=== PATIENT | male | born 1940 | race Caucasian/White ===

== ENCOUNTER → 2017-07-28 | Outpatient (CLI) | payer MEDICARE, MEDICAID ==
[~2017-07-28] MED LIST: ACE325 PO; ALB18R INH; ALB6.7R INH; ALBU8.5H12 IH; AMOX-559 PO; AZIT-1 PO; AZIT-18 PO; CHOL200021 PO; CYCL-343 PO; DAR100 PO; DULO30CA35 PO; FAM20 PO; FEXO180T87 PO; FLU45SYR25 IM ONLY; FLUT16SP19 NS; FLUT1DIS28 IH; GABA-503 PO; GABA-547 PO; GABA-549 PO; GUAI118L69 PO; HYDR-389 PO; HYDR1TAB PO; HYDR2TAB74 PO; IPRA3AMP21 IH; KET10 PO; LEVO-85 PO; LIDO20SO21 MM; LIDO700A29 TD; LOR5 PO; LORA1TAB PO; MIRT-22 PO; MOM PO; NAPR-1043 PO; NEBU1KIT43 MC; NYST100040 PO; OMEP-137 PO; OMEP-153 PO; OMEP40CA48 PO; ONDA4TAB PO; PER PO; PNEU0.5D3 IM; POLY17PO25 PO; PRED20TA6 PO; TAMS0.4C70 PO; TOBOD OD; TRAM-420 PO; TRAM100T22 PO; VAR05PT PO; VARE1TAB3 PO; WAR25 PO; WAR5 PO; [UNRECOGNIZED DRUG - REMARK]
[2017-07-28 16:35] LABS: PLATELET COUNT, AUTOMATED 263 K/uL (150-450)
[2017-07-28 16:50] LABS: LDL CHOLESTEROL 134 mg/dl
--- NOTE | 2017-07-28 17:08 | RADIOLOGY IMAGING REPORT ---
FACILITY: [facility] PATIENT NAME: Gerry Mason : 1940 MR: [id number] V: [id number] EXAM DATE: ORDERING PHYSICIAN: HU HENDERSON TECHNOLOGIST: Location: [facility] - [place] Patient: Gerry Mason : 1940 Visit/Account:[id number] Date of Sevice: 07/28/2017 2 VIEWS CHEST INDICATION: COPD and constipation COMPARISON: No notable priors at this time. FINDINGS: Heart size within normal limits. Linear calcified densities overlie the lateral right and left lung field indicative of calcified pleu ral plaques. Lungs are mildly hyperinflated but clear without evidence of focal infiltrate, effusion, consolidation or pneumothorax. No acute bony finding. Fracture deformity and postoperative changes noted to the left clavicle. IMPRESSION: 1. 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 No evidence of acute cardiopulmonary process. Report Dictated By: Jae Kilgore MD at 07/28/2017 5:02 PM Report E-Signed By: Jae Kilgore MD at 07/28/2017 5:04 PM WSN:[email or web address]
--- NOTE | 2017-07-28 17:23 | RADIOLOGY IMAGING REPORT ---
[place] [facility] [place]: Gerry Mason : 1940 MR: [id number] V: [id number] EXAM DATE: ORDERING PHYSICIAN: HU HENDERSON TECHNOLOGIST: [place] [facility] [place] : 1940 Visit/Account:[id number] Date of Sevice: 07/28/2017 Exam type: KUB SINGLE VIEW ABDOMEN History: COPD, constipation, right hip pain Comparison: July 11, 2015. Findings: There is a nonspecific bowel gas pattern present. There is no evidence of organomegaly. There are p ostsurgical changes lower lumbar spine and right hip. Calcified phlebolith are present in the pelvis . IMPRESSION: 1. Nonspecific bowel gas pattern Report Dictated By: Rosa Maria Clemente MD at 07/28/2017 5:04 PM Report E-Signed By: Rosa Maria Clemente MD at 07/28/2017 5:18 PM WSN:[email or web address]
--- NOTE | 2017-07-28 17:30 | RADIOLOGY IMAGING REPORT ---
FACILITY: [facility] [place] PATIENT NAME: Gerry Mason : 1940 MR: [id number] V: [id number] EXAM DATE: ORDERING PHYSICIAN: HU HENDERSON TECHNOLOGIST: [place] [facility] [place] Gerry Mason : 1940 Visit/Account:[id number] Date of Sevice: 07/28/2017 Exam type: HIP RIGHT History: Right hip pain Comparison: July 11, 2015. Findings: There is a right hip arthroplasty that appears in good anatomic alignment. No evidence of prosthetic loosening. There are postsurgical changes lower lumbar spine. There are old fracture deformities o f the superior and inferior pubic rami on the left. There is a small sclerotic density in the proxim al left femur unchanged when compared the prior study IMPRESSION: 1. Right hip arthroplasty appears in good anatomic alignment with no evidence of prosthetic loosenin g at this time Report Dictated By: Rosa Maria Clemente MD at 07/28/2017 5:24 PM Report E-Signed By: Rosa Maria Clemente MD at 07/28/2017 5:27 PM WSN:[email or web address]
== END ==
LOC: LAB 15:52
PROVIDERS: ATTEND Internal Medicine
DX: Z12.5 Encounter for screening for malignant neoplasm of prostate (principal); R91.8 Other nonspecific abnormal finding of lung field; Z96.641 Presence of right artificial hip joint; K21.9 Gastro-esophageal reflux disease without esophagitis; E78.5 Hyperlipidemia, unspecified; R10.9 Unspecified abdominal pain; K59.00 Constipation, unspecified; J44.9 Chronic obstructive pulmonary disease, unspecified
CPT/HCPCS: 81001; 82150; 83690; 84443; 85025; G0103; 36415; 71046; 74018; 82040; 82247; 82310; 82374; 82435; 82465; 82565; 82947; 83718; 84075; 84132; 84153; 84155; 84295; 84450; 84460; 84478; 84520

== ENCOUNTER → 2017-08-05 | Outpatient (CLI) | payer MEDICARE, MEDICAID ==
[~2017-08-05] MED LIST changes: +IOPAMIDOL 76% 75 ML INFUS BTL 75 ML ONE
--- NOTE | 2017-08-05 12:16 | RADIOLOGY IMAGING REPORT ---
FACILITY: [facility] [place] PATIENT NAME: Gerry Mason : 1940 MR: [id number] V: [id number] EXAM DATE: ORDERING PHYSICIAN: HU HENDERSON TECHNOLOGIST: Location: [facility] [place] Patient: Gerry Mason : 1940 Visit/Account:[id number] Date of Sevice: 08/05/2017 ABDOMEN/PELVIS W/WO CONTRAST HISTORY: Abdomen pain, constipation TECHNIQUE: Axial images acquired through the abdomen/pelvis both with and without IV contrast.. Sharan nal and sagittal reformatting also performed. Dose Lowering Technique One of the following dose optimization techniques was utilized in the performance of this exam: Autom ated exposure control; adjustment of the mA and/or kV according to the patient's size; or use of an i terative reconstruction technique. Specific details can be referenced in the facility's radiology C T exam operational policy. CONTRAST: 75 mL Isovue-370 COMPARISON: December 11, 2012 FINDINGS: Visualized lung bases: There is a wedge-shaped area of consolidation in the posterior medial right l ower lobe could represent scarring, atelectasis or developing infiltrate. Small amount linear scarri ng noted in the medial left lung base Hepatobiliary: Negative. Spleen: Negative. Adrenals: Negative. Pancreas: Negative. Kidneys ureters and bladder: There is a 3.1 cm left renal cyst Genitalia: Prostate gland appears mildly enlarged containing coarse calcifications impinging upon th e floor the bladder GI: The appendix is visualized does not appear inflamed. There is mild diverticulosis in the left-s ided colon although no CT evidence of acute diverticulitis. Vessels/spaces/nodes: There are moderate vascular calcifications present. Bones/soft tissues: There is a right hip arthroplasty. There are postoperative changes from posteri or lumbar interbody fusion at L4-5. There is a persistent grade 1-2 anterolisthesis of L4 with respe ct L5 Additional findings: None pertinent. IMPRESSION: There is a wedge-shaped area of consolidation posterior medial right lower lobe which could represent scarring, atelectasis or developing infiltrate.. Prostate gland is mildly enlarged containing coarse calcifications impinging upon the floor the bladd er Mild diverticulosis left-sided colon although no CT evidence of acute diverticulitis Additional chronic findings as described Report Dictated By: Rosa Maria Clemente MD at 08/05/2017 12:01 PM Report E-Signed By: Rosa Maria Clemente MD at 08/05/2017 12:13 PM WSN:[email or web address]
== END ==
LOC: CT 01:19
PROVIDERS: ATTEND Internal Medicine
DX: R91.8 Other nonspecific abnormal finding of lung field (principal); N28.1 Cyst of kidney, acquired; N40.0 Benign prostatic hyperplasia without lower urinary tract symptoms; K57.30 Diverticulosis of large intestine without perforation or abscess without bleeding; I25.10 Atherosclerotic heart disease of native coronary artery without angina pectoris; Z96.641 Presence of right artificial hip joint
CPT/HCPCS: 74178; Q9967

== ENCOUNTER → 2017-09-10 | Outpatient (CLI) | payer MEDICARE, MEDICAID ==
[~2017-09-10] MED LIST changes: -IOPAMIDOL 76% 75 ML INFUS BTL 75 ML ONE
== END ==
LOC: RESP 02:08
PROVIDERS: ATTEND Internal Medicine
DX: J98.4 Other disorders of lung (principal)
CPT/HCPCS: 94060; 94726; 94729

== ENCOUNTER 2017-10-21 11:43 | Emergency (ER) | payer MEDICARE, MEDICAID ==
[2017-10-21] MEDS ORDERED: NS(*) 0.9% 1000 ML BAG 1,000 ML IV ONE (12:12)
[2017-10-21] MEDS ORDERED: DIPHTH/TETANUS/ACEL. PERTUSSIS IM ONE (12:15)
[2017-10-21] MEDS ORDERED: ACETAMINOPHEN 500 MG TAB PO ONE (12:15)
[2017-10-21] MEDS ORDERED: ALBUTEROL/IPRATROPIUM 3 ML NEB NEB ONE (12:15)
--- NOTE | 2017-10-21 12:19 | ER Report ---
History and Physical Time Seen By MD: 12:18 Hx. of Stated Complaint: FELL 8 FEET OFF OF LADDER LAST THURSDAY. C/O BILAT HIP PAIN, TAILBONE AND BACK PAIN. REPORTS LOC - UNSURE OF HOW LONG. HPI/ROS CHIEF COMPLAINT: Abdominal pain, b/l hip pain, hypoxia (81% RA) s/p fall from ladder last week approximately 8 ft height HISTORY OF PRESENT ILLNESS: Patient is a 77-year-old male here status post fall apparently one week ago from an 8 foot ladder with a positive loss of consciousness. Patient reports worsening bilateral hip pain at the site of prior hip replacements. Patient also has voluntary guarding of all quadrants of the abdomen. Patient was noted to be hypoxic at time of evaluation in the emergency department with the oxygen saturation 81% on room air. Patient also complains of C-spine neck pain, lower back pain, headache and blurred vision intermittently. Patient is afebrile, hemodynamically stable at time of evaluation. Patient also had mild hematuria. REVIEW OF SYSTEMS: Constitutional: No fever, no chills. Eyes: No discharge. ENT: No sore throat. Cardiovascular: No chest pain, no palpitations. Respiratory: No cough, + shortness of breath. Gastrointestinal: + abdominal pain, no vomiting. Genitourinary: + hematuria. Musculoskeletal: + back pain. Skin: No rashes. Neurological: + headache. Allergies: Coded Allergies: Mercurial Analogues (Verified Allergy, Severe, SWELLING, 10/21/17) iodine (Verified Allergy, Severe, SWELLING, 10/21/17) morphine (Verified Allergy, Severe, SWELLING, 10/21/17) Uncoded Allergies: SEASONAL ALLERGIES (Allergy, Mild, SNEEZING, 08/09/12) Home Meds Active Scripts Albuterol Sulfate (VENTOLIN HFA) 18 Gm Inh, 2 PUFF INH Q4-6H Y for SHORTNESS OF BREATH, #3 INH 6 Refills albuterol is not helpful Prov:HU HENDERSON MD 08/31/17 Gabapentin (GABAPENTIN) 300 Mg Capsule, 300 MG PO BID, #180 CAPSULE 3 Refills Prov:HU HENDERSON MD 08/31/17 Mirtazapine (MIRTAZAPINE) 15 Mg Tablet, 1 TAB PO QHS for to improve appetite and sleep., #90 TAB 3 Refills Prov:HU HENDERSON MD 07/28/17 Ipratropium/Albuterol Sulfate (IPRAT-ALBUT 0.5-3(2.5) MG/3 ML) 3 Ml Ampul.neb, 3 ML IH QID Y for DYSPNEA, #120 INH 9 Refills Prov:HU HENDERSON MD 07/28/17 Tamsulosin Hcl (TAMSULOSIN HCL) 0.4 Mg Cap.er.24h, 1 CAP PO HS, #90 CAP 3 Refills Prov:HU HENDERSON MD 07/28/17 Fluticasone Prop 50 Mcg Ns (FLONASE 50 MCG NS) 16 Gm [place].susp, 1 SPRAY NS BID , #1 BOT 12 Refills Prov:HU HENDERSON MD 07/28/16 Nebulizer Accessories (A.I.R.S. NEBULIZER) 1 Each Kit, 1 EACH MC QID Y for DYSPNEA, #1 Prov:HU HENDERSON MD 07/24/15 Polyethylene Glycol 3350 (MIRALAX) 17 Gm Powd.pack, 17 GM PO QDAY, #30 PKT 3 Refills Prov:HU HENDERSON MD 07/11/15 Discontinued Scripts Omeprazole (OMEPRAZOLE) 40 Mg Capsule.dr, 40 MG PO QDAY, #90 CAP 3 Refills Prov:HU HENDERSON MD 07/28/17 Hx Smoking: Yes (1/2PPD) Smoking Status: Current: Every Day Smoker Exposure to Second Hand Smoke?: No Hx Substance Use Disorder: No Hx Alcohol Use: Yes (rare) Constitutional Vital Sign - Last 24 Hours 10/21/17 10/21/17 10/21/17 10/21/17 11:47 11:47 12:20 12:20 Temp 98.4 Pulse 78 73 Resp 20 18 B/P (MAP) 139/81 Pulse Ox 81 92 O2 Delivery Room Air Nasal Cannula O2 Flow Rate 3.0 2.0 10/21/17 12:30 Pulse 78 Resp 18 Physical Exam General Appearance: The patient is alert, has no immediate need for airway protection and no signs of toxicity. Eyes: Pupils equal and round no pallor or injection. ENT, Mouth: Mucous membranes are moist. Respiratory: There are no retractions, lungs are clear to auscultation. Cardiovascular: Regular rate and rhythm. Gastrointestinal: Abdomen is soft + diffusely tender Neurological: No focal neuro deficits Skin: Warm and dry, no rashes. Musculoskeletal: Neck is supple non tender. Extremities: + hips painful with ROM testing DIFFERENTIAL DIAGNOSIS: After history and physical exam differential diagnosis was considered for fracture, contusion, intra abdominal bleed, concussion, pneumonia Medical Decision Making Data Points Result Diagram: 10/21/17 1200 10/21/17 1200 Laboratory Hematology Test 10/21/17 12:00 10/21/17 13:44 Red Blood Count 4.92 M/uL (4.00-5.60) Mean Corpuscular Volume 90.3 fL (80.0-96.0) Mean Corpuscular Hemoglobin 30.6 pg (26.0-33.0) Mean Corpuscular Hemoglobin Concent 33.9 g/dL (32.0-36.0) Red Cell Distribution Width 14.2 % (11.5-14.5) Mean Platelet Volume 7.1 fL (7.2-11.1) Neutrophils (%) (Auto) 54.3 % (39.4-72.5) Lymphocytes (%) (Auto) 31.2 % (17.6-49.6) Monocytes (%) (Auto) 9.9 % (4.1-12.4) Eosinophils (%) (Auto) 3.4 % (0.4-6.7) Basophils (%) (Auto) 1.2 % (0.3-1.4) Nucleated RBC Relative Count (auto) 0.1 /100WBC Neutrophils # (Auto) 2.8 K/uL (2.0-7.4) Lymphocytes # (Auto) 1.6 K/uL (1.3-3.6) Monocytes # (Auto) 0.5 K/uL (0.3-1.0) Eosinophils # (Auto) 0.2 K/uL (0.0-0.5) Basophils # (Auto) 0.1 K/uL (0.0-0.1) Nucleated RBC Absolute Count (auto) 0.00 K/uL Prothrombin Time 13.1 seconds (12.0-14.4) Prothromb Time International Ratio 0.99 Activated Partial Thromboplast Time 34 seconds (23-35) Sodium Level 140 mmol/L (137-145) Potassium Level 3.6 mmol/L (3.5-5.0) Chloride Level 102 mmol/L (98-107) Carbon Dioxide Level 29 mmol/L (22-30) Blood Urea Nitrogen 8 mg/dl (9-21) Creatinine 0.90 mg/dl (0.66-1.25) Glomerular Filtration Rate Calc > 60.0 Random Glucose 94 mg/dl (75-110) Lactate 1.4 mmol/L (0.7-2.1) Calcium Level 9.4 mg/dl (8.4-10.2) Total Bilirubin 0.9 mg/dl (0.2-1.3) Aspartate Amino Transf (AST/SGOT) 21 U/L (0-35) Alanine Aminotransferase (ALT/SGPT) 24 U/L (0-56) Alkaline Phosphatase 77 U/L (0-126) Total Protein 6.3 gm/dl (6.3-8.2) Albumin 3.3 g/dl (3.5-5.0) Lipase 26 U/L (23-300) Urine Color Straw Urine Clarity Clear Urine pH 6.0 pH (4.8-9.5) Urine Specific [place] 1.005 Urine Protein Negative mg/dL (NEGATIVE) Urine Glucose (UA) Negative mg/dL (NEGATIVE) Urine Ketones Negative mg/dL (NEGATIVE) Urine Blood Negative (NEGATIVE) Urine Nitrite Negative (NEGATIVE) Urine Bilirubin Negative (NEGATIVE) Urine Urobilinogen Negative mg/dL (0.2-1.9) Urine Leukocyte Esterase Negative (NEGATIVE) Urine RBC None /HPF (0-2/HPF) Urine WBC None /HPF (0-5/HPF) Urine Squamous Epithelial Cells Few /LPF (</=FEW) Urine Bacteria Negative /HPF (NONE-FEW) Urine Mucus None /HPF (NONE-FEW) Chemistry Test 10/21/17 12:00 10/21/17 13:44 White Blood Count 5.2 k/uL (4.5-11.0) Red Blood Count 4.92 M/uL (4.00-5.60) Hemoglobin 15.1 g/dL (14.0-18.0) Hematocrit 44.4 % (42.0-52.0) Mean Corpuscular Volume 90.3 fL (80.0-96.0) Mean Corpuscular Hemoglobin 30.6 pg (26.0-33.0) Mean Corpuscular Hemoglobin Concent 33.9 g/dL (32.0-36.0) Red Cell Distribution Width 14.2 % (11.5-14.5) Platelet Count 254 K/uL (150-450) Mean Platelet Volume 7.1 fL (7.2-11.1) Neutrophils (%) (Auto) 54.3 % (39.4-72.5) Lymphocytes (%) (Auto) 31.2 % (17.6-49.6) Monocytes (%) (Auto) 9.9 % (4.1-12.4) Eosinophils (%) (Auto) 3.4 % (0.4-6.7) Basophils (%) (Auto) 1.2 % (0.3-1.4) Nucleated RBC Relative Count (auto) 0.1 /100WBC Neutrophils # (Auto) 2.8 K/uL (2.0-7.4) Lymphocytes # (Auto) 1.6 K/uL (1.3-3.6) Monocytes # (Auto) 0.5 K/uL (0.3-1.0) Eosinophils # (Auto) 0.2 K/uL (0.0-0.5) Basophils # (Auto) 0.1 K/uL (0.0-0.1) Nucleated RBC Absolute Count (auto) 0.00 K/uL Prothrombin Time 13.1 seconds (12.0-14.4) Prothromb Time International Ratio 0.99 Activated Partial Thromboplast Time 34 seconds (23-35) Glomerular Filtration Rate Calc > 60.0 Lactate 1.4 mmol/L (0.7-2.1) Calcium Level 9.4 mg/dl (8.4-10.2) Total Bilirubin 0.9 mg/dl (0.2-1.3) Aspartate Amino Transf (AST/SGOT) 21 U/L (0-35) Alanine Aminotransferase (ALT/SGPT) 24 U/L (0-56) Alkaline Phosphatase 77 U/L (0-126) Total Protein 6.3 gm/dl (6.3-8.2) Albumin 3.3 g/dl (3.5-5.0) Lipase 26 U/L (23-300) Urine Color Straw Urine Clarity Clear Urine pH 6.0 pH (4.8-9.5) Urine Specific [place] 1.005 Urine Protein Negative mg/dL (NEGATIVE) Urine Glucose (UA) Negative mg/dL (NEGATIVE) Urine Ketones Negative mg/dL (NEGATIVE) Urine Blood Negative (NEGATIVE) Urine Nitrite Negative (NEGATIVE) Urine Bilirubin Negative (NEGATIVE) Urine Urobilinogen Negative mg/dL (0.2-1.9) Urine Leukocyte Esterase Negative (NEGATIVE) Urine RBC None /HPF (0-2/HPF) Urine WBC None /HPF (0-5/HPF) Urine Squamous Epithelial Cells Few /LPF (</=FEW) Urine Bacteria Negative /HPF (NONE-FEW) Urine Mucus None /HPF (NONE-FEW) Coagulation Test 10/21/17 12:00 Prothrombin Time 13.1 seconds Prothromb Time International Ratio 0.99 Activated Partial Thromboplast Time 34 seconds Urinalysis Test 10/21/17 13:44 Urine Color Straw Urine Clarity Clear Urine pH 6.0 pH (4.8-9.5) Urine Specific [place] 1.005 Urine Protein Negative mg/dL (NEGATIVE) Urine Glucose (UA) Negative mg/dL (NEGATIVE) Urine Ketones Negative mg/dL (NEGATIVE) Urine Blood Negative (NEGATIVE) Urine Nitrite Negative (NEGATIVE) Urine Bilirubin Negative (NEGATIVE) Urine Urobilinogen Negative mg/dL (0.2-1.9) Urine Leukocyte Esterase Negative (NEGATIVE) Urine RBC None /HPF (0-2/HPF) Urine WBC None /HPF (0-5/HPF) Urine Squamous Epithelial Cells Few /LPF (</=FEW) Urine Bacteria Negative /HPF (NONE-FEW) Urine Mucus None /HPF (NONE-FEW) ED Course/Re-evaluation ED Course Patient is a 77-year-old male here status post fall approximately one week ago with complaints of headache, intermittent blurred vision, neck pain, hypoxia with a saturation of 81% on room air, persistent cough, diffuse abdominal pain with voluntary guarding, low back pain, bilateral hip pain, hematuria. Patient also reports having lost consciousness for an unknown period of time after falling 8 feet from the ladder. For these reasons, CT trauma scan was ordered x- rays of the hips bilaterally where the patient describes worsening pain. Scans were negative for acute fracture or dislocation . Also lab work was ordered due to concern for possible anemia or blood loss of unknown etiology and returned normal. Patient was given fluids, analgesia for symptomatically relief. She was advised to take naproxen for pain relief. Of note, the trauma scans were completed without contrast due to patient's self-reported history of "near " when being administered IV contrast. Patient was stable at time of discharge. Patient voiced understanding of plan. Decision to Disposition Date: October 21, 2017 Decision to Disposition Time: 14:48 Depart Departure Latest Vital Signs Vital Signs Date Time Temp Pulse Resp B/P (MAP) Pulse Ox O2 Delivery O2 Flow Rate FiO2 10/21/17 12:30 78 18 10/21/17 12:20 92 Nasal Cannula 2.0 10/21/17 11:47 98.4 139/81 Impression: Primary Impression: Fall Additional Impressions: Contusion Musculoskeletal pain Condition: Improved Disposition: HOME OR SELF-CARE Referrals: HU HENDERSON MD (PCP) Patient Instructions: Contusion in Adults (ED), Fall Prevention for Older Adults (ED) Additional Instructions: You may take naproxen 500 mg every 8-12 hours as needed for pain. Please continue to use your home oxygen and titrate to oxygen levels of greater than 90 % until you're able to follow up with your doctor since your oxygen levels were noted to be 81% on room air. Please return promptly if you develop worsening pain, fevers, chills, shortness of breath, nausea, vomiting, difficulty walking. Problem Qualifiers ANGELO SCHILLING DO October 21, 2017 12:19
[2017-10-21 12:25] LABS: PLATELET COUNT, AUTOMATED 254 K/uL (150-450)
[2017-10-21] MEDS ORDERED: IOPAMIDOL 76% 75 ML INFUS BTL 75 ML ONE (12:27)
[2017-10-21 12:31] LABS: INR 0.99
--- NOTE | 2017-10-21 13:22 | RADIOLOGY IMAGING REPORT ---
[facility] PATIENT NAME: Gerry Mason : 1940 MR: [id number] V: [id number] EXAM DATE: ORDERING PHYSICIAN: ANGELO SCHILLING TECHNOLOGIST: [place] [facility] [place] Patient: Gerry Maosn : 1940 Visit/Account:[id number] Date of Sevice: 10/21/2017 Exam type: HIPS BILATERAL History: b/l hip pain s/p fall Comparison: July 28, 2017 Findings: Two views of the right hip demonstrate right hip arthroplasty with no gross evidence of acute fractur e or dislocation. A third nondiagnostic view was submitted. A lateral view was not obtained. Incid entally noted is an old fracture to the superior and inferior pubic rami on the left. IMPRESSION: 1. No evidence of acute fracture station involving the right hip on provided images Report Dictated By: Rosa Maria Clemente MD at 10/21/2017 1:14 PM Report E-Signed By: Rosa Maria Clemente MD at 10/21/2017 1:17 PM WSN:[email or web address]
--- NOTE | 2017-10-21 13:59 | RADIOLOGY IMAGING REPORT ---
FACILITY: [facility] [place] PATIENT NAME: Gerry Mason : 1940 MR: [id number] V: [id number] EXAM DATE: ORDERING PHYSICIAN: ANGELO SCHILLING TECHNOLOGIST: Location: [facility] Patient: Gerry Mason : 1940 Visit/Account:[id number] Date of Sevice: 10/21/2017 CHEST/AB/PELV W/OUT CONTRAST HISTORY: fall ADDITIONAL HISTORY: None. TECHNIQUE: Contiguous axial images acquired through the chest abdomen and pelvis without IV contrast. Coronal and sagittal reformatting was also performed. Dose Lowering Technique One of the following dose optimization techniques was utilized in the performance of this exam: Autom ated exposure control; adjustment of the mA and/or kV according to the patient's size; or use of an i terative reconstruction technique. Specific details can be referenced in the facility's radiology C T exam operational policy. COMPARISON: CT abdomen pelvis August 05, 2017 CT chest December 19, 2012 FINDINGS: CHEST: Lungs/Pleura: Small amount linear stranding in the right lower lobe may represent scarring versus at electasis. Chronic atelectasis is identified in the inferior lingula. There are multiple bilateral calcified pleural plaques. If. No evidence of a pneumothorax or pneumomediastinum. Mediastinum/lymph nodes: Negative. Heart/vessels: Mild coronary artery calcifications. Calcifications also noted at the aortic root Bones/soft tissues: There is an old left clavicular fracture with postsurgical changes. Old fractur e deformity/fusion identified at the left shoulder. There are postsurgical changes of the visualized lower cervical spine and moderate degenerative changes of the right shoulder joint there are old weston ateral rib fractures ABDOMEN AND PELVIS: Hepatobiliary: Negative. Spleen: Negative. Pancreas: Negative. Adrenals: Negative. Kidneys ureters and bladder : Left renal cysts. Pelvic contents not ideally evaluated due to numerou s streak artifacts from a right hip arthroplasty Genitalia: Calcifications are noted within the prostate gland. GI: Diverticulosis of the left-sided colon although no CT evidence of acute diverticulitis Vessels/spaces/nodes: Mild to moderate vascular calcifications are present Bones/soft tissues: Streak artifacts from right hip arthroplasty sclerotic density in the subtrochan teric portion of the left hip remains stable. There are postsurgical changes at L5-S1 from posterior lumbar interbody fusion with a grade 1-2 anterolisthesis of L4 with respect L5 appearing similar to the prior study old fractures through the superior inferior pubic rami on the left again noted Additional findings: None pertinent. IMPRESSION: No acute injury identified within the chest abdomen or pelvis on this noncontrast enhanced study Scarring versus atelectasis the right lower lobe Chronic atelectasis in the inferior lingula Multiple calcified pleural plaques bilaterally raising the question of asbestos exposure Postsurgical changes from old left clavicular fracture, and the lower cervical spine, within the lowe r lumbar spine and a right hip arthroplasty Old fracture deformities of the left shoulder, old bilateral rib fractures, old left sided pubic frac tures. Additional chronic findings as described Report Dictated By: Rosa Maria Clemente MD at 10/21/2017 1:39 PM Report E-Signed By: Rosa Maria Clemente MD at 10/21/2017 1:55 PM WSN:[email or web address]
--- NOTE | 2017-10-21 14:11 | RADIOLOGY IMAGING REPORT ---
FACILITY: [facility] PATIENT NAME: Gerry Mason : 1940 MR: [id number] V: [id number] EXAM DATE: ORDERING PHYSICIAN: ANGELO SCHILLING TECHNOLOGIST: Location: [facility] Patient: Gerry Mason : 1940 Visit/Account:[id number] Date of Sevice: 10/21/2017 EXAMINATION: Head CT without intravenous contrast HISTORY: Trauma TECHNIQUE: Contiguous axial images were obtained from the skull base to the vertex without intraven ous contrast. Sagittal and coronal reformatted images are also submitted. Dose Lowering Technique One of the following dose optimization techniques was utilized in the performance of this exam: Autom ated exposure control; adjustment of the mA and/or kV according to the patient's size; or use of an i terative reconstruction technique. Specific details can be referenced in the facility's radiology C T exam operational policy. COMPARISON: MR the brain 07/29/[address] November 20, 2010 FINDINGS: Brain volume: Mild to moderate diffuse central cortical atrophy present. Not out of proportion for patient's stated age Ventricles: Normal. Acute ischemic changes: None. Hemorrhage: None. 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 White matter: Normal. Vessels: Calcification is noted in the carotid siphons Extra-axial: Negative. Calvarium / scalp: Negative. Skull base / visualized face: Negative. Visualized sinuses / orbits: Multiple polypoid lesions again seen in the axillary sinuses with almos t complete opacification of the sphenoid sinus and partial opacification of ethmoid sinuses similar t o the prior MR IMPRESSION: No acute intracranial process is seen. Additional chronic findings as described above Report Dictated By: Rosa Maria Clemente MD at 10/21/2017 1:55 PM Report E-Signed By: Rosa Maria Clemente MD at 10/21/2017 2:07 PM WSN:[email or web address]
--- NOTE | 2017-10-21 14:23 | RADIOLOGY IMAGING REPORT ---
FACILITY: [facility] [place] PATIENT NAME: Gerry Mason : 1940 MR: [id number] V: [id number] EXAM DATE: ORDERING PHYSICIAN: ANGELO SCHILLING TECHNOLOGIST: Location: [facility] Patient: Gerry Mason : 1940 Visit/Account:[id number] Date of Sevice: 10/21/2017 Exam type: C-SPINE W/O CONTRAST History: TRAUMA Comparison: December 11, 2012. TECHNIQUE: Multiple axial images were obtained to the cervical spine without contrast. Coronal and s agittal reformations were performed. Dose Lowering Technique One of the following dose optimization techniques was utilized in the performance of this exam: Autom ated exposure control; adjustment of the mA and/or kV according to the patient's size; or use of an i terative reconstruction technique. Specific details can be referenced in the facility's radiology C T exam operational policy. Findings: There is a levoconvex curvature to the cervical spine. There is straightening of normal cervical abiel dosis. Again noted are postsurgical changes with metallic wires along the posterior spinous processes of C5 , C6, C7 and T1. There is a 4 mm anterolisthesis of C6 with respect to C7 appears similar to the ella or study. There appears to been fusion of the C5-6 vertebral bodies. There is no evidence of acute fractures or subluxations identified. There are multilevel spondylotic changes seen throughout the cervical spine. These are most prominen t at C3-4 the liver there is moderate severe disc space narrowing, marginal osteophytes uncovertebral spurring and degenerative facet joint changes with moderate foraminal narrowing on the right... IMPRESSION: 1. Extensive spondylotic changes and postsurgical changes in the cervical spine as described above al though no evidence of acute fractures or subluxations are identified. Report Dictated By: Rosa Maria Clemente MD at 10/21/2017 2:07 PM Report E-Signed By: Rosa Maria Clemente MD at 10/21/2017 2:18 PM WSN:[id number]
[2017-10-21 14:30] VITALS: BP 122/72
== END 2017-10-21 15:00 | disposition home or self-care (01) ==
LOC: ER 12:03
DX: M79.1 Myalgia (principal); W11.XXXA Fall on and from ladder, initial encounter; R06.02 Shortness of breath; R51 Headache
CPT/HCPCS: 36415; 70450; 71250; 72125; 73522; 74176; 81001; 83605; 83690; 85025; 85610; 85730; 86850; 86900; 86901; 90471; 90715; 94640; 96360; 96361; 99284; A9270; J7030; J7620; L0172; Q9967; 82040; 82247; 82310; 82374; 82435; 82565; 82947; 84075; 84132; 84155; 84295; 84450; 84460; 84520

== ENCOUNTER 2017-10-31 19:36 | Emergency (ER) | payer MEDICARE, MEDICAID ==
[2017-10-31] MEDS ORDERED: PROPARACAINE 0.5% OP 15ML BTL OU ONE (20:05)
[2017-10-31] MEDS ORDERED: FLUORESCEIN SOD 1 MG 1 EA STRP OU ONE (20:05)
--- NOTE | 2017-10-31 20:19 | ER Report ---
History and Physical Time Seen By MD: 20:18 Hx. of Stated Complaint: PATIENT WAS WELDING AND GOT PIECE OF "SOMETHIN" IN HIS EYE, IT HAPPENED AROUND 1700. HPI/ROS CHIEF COMPLAINT: possible metal in eye from welding HISTORY OF PRESENT ILLNESS: This is a 77 year old male. He was working today, welding, and felt like something flew into his left eye. This happened about 1700. Significant irritation and watering and pain now. Mild blurred vision, but otherwise does not feel like having vision changes. Has had metal in his eye in the past and this feels similar. Has had bilateral cataract surgery in the past. Allergies: Coded Allergies: Mercurial Analogues (Verified Allergy, Severe, SWELLING, 10/31/17) iodine (Verified Allergy, Severe, SWELLING, 10/31/17) morphine (Verified Allergy, Severe, SWELLING, 10/31/17) Uncoded Allergies: SEASONAL ALLERGIES (Allergy, Mild, SNEEZING, 08/09/12) Home Meds Active Scripts Albuterol Sulfate (VENTOLIN HFA) 18 Gm Inh, 2 PUFF INH Q4-6H Y for SHORTNESS OF BREATH, #3 INH 6 Refills albuterol is not helpful Prov:HU HENDERSON MD 08/31/17 Gabapentin (GABAPENTIN) 300 Mg Capsule, 300 MG PO BID, #180 CAPSULE 3 Refills Prov:HU HENDERSON MD 08/31/17 Mirtazapine (MIRTAZAPINE) 15 Mg Tablet, 1 TAB PO QHS for to improve appetite and sleep., #90 TAB 3 Refills Prov:HU HENDERSON MD 07/28/17 Ipratropium/Albuterol Sulfate (IPRAT-ALBUT 0.5-3(2.5) MG/3 ML) 3 Ml Ampul.neb, 3 ML IH QID Y for DYSPNEA, #120 INH 9 Refills Prov:HU HENDERSON MD 07/28/17 Tamsulosin Hcl (TAMSULOSIN HCL) 0.4 Mg Cap.er.24h, 1 CAP PO HS, #90 CAP 3 Refills Prov:HU HENDERSON MD 07/28/17 Fluticasone Prop 50 Mcg Ns (FLONASE 50 MCG NS) 16 Gm [place].susp, 1 SPRAY NS BID , #1 BOT 12 Refills Prov:HU HENDERSON MD 07/28/16 Nebulizer Accessories (A.I.R.S. NEBULIZER) 1 Each Kit, 1 EACH QID Y for DYSPNEA, #1 Prov:HU HENDERSON MD 07/24/15 Polyethylene Glycol 3350 (MIRALAX) 17 Gm Powd.pack, 17 GM PO QDAY, #30 PKT 3 Refills Prov:HU HENDERSON MD 07/11/15 Reviewed Nurses Notes: Yes Hx Smoking: Yes (1/2PPD) Smoking Status: Current: Every Day Smoker Exposure to Second Hand Smoke?: No Hx Substance Use Disorder: No Hx Alcohol Use: Yes (rare) Constitutional Vital Sign - Last 24 Hours 10/31/17 10/31/17 10/31/17 10/31/17 20:11 20:21 20:30 20:36 Temp 98.0 Pulse 60 61 65 Resp 16 B/P (MAP) 122/81 130/81 (97) Pulse Ox 86 94 93 O2 Delivery Room Air 10/31/17 20:43 B/P (MAP) 102/71 (81) Physical Exam General Appearance: Alert, no distress. Used Proparacaine 0.5% drops to numb the left eye. Significant improvement in pain with this. Slit lamp exam: Normal anterior chamber, iris and conjunctiva. I see no foreign body or metal on the cornea. Eyes: Pupils equal, round and reactive to light. No pallor. No scleral icterus. Left eye with moderate injection. There is no discharge. Examination , including under the upper lid, reveals no foreign body. Fluorescein exam reveals uptake over the cornea middle and lateral. Skin: Periorbital skin is not inflamed. DIFFERENTIAL DIAGNOSIS: After history and physical exam differential diagnosis was considered for a red eye from a corneal abrasion, no metal in the cornea on exam. Medical Decision Making ED Course/Re-evaluation ED Course Treated with Tobramycin ophthalmic drops. Discussed the findings and treatment with the patient and answered all questions. Decision to Disposition Date: Oct 31, 2017 Decision to Disposition Time: 20:36 Depart Departure Latest Vital Signs Vital Signs Date Time Temp Pulse Resp B/P (MAP) Pulse Ox O2 Delivery O2 Flow Rate FiO2 10/31/17 20:43 102/71 (81) 10/31/17 20:36 65 93 10/31/17 20:11 98.0 16 Room Air Impression: Primary Impression: Corneal abrasion, left Condition: Improved Disposition: HOME OR SELF-CARE Referrals: HU HENDERSON MD (PCP) Patient Instructions: Corneal Abrasion (ED) Additional Instructions: Use the antibiotic eye drops called Tobramycin ophthalmic drops. 1 drop in the left eye 4 times a day for 5 days. You will still have discomfort for a few days while this heals. You can use lubricating eye drops that you can get over the counter to help with discomfort, and can use 1-2 drops every hour as needed. If still having problems, please see an coverage specialist for further evaluation. Problem Qualifiers Primary Impression: Corneal abrasion, left Encounter type: initial encounter Qualified Codes: S05.02XA - Injury of conjunctiva and corneal abrasion without foreign body, left eye, initial encounter SOY MAGALLON MD Oct 31, 2017 20:18
[2017-10-31] MEDS ORDERED: TOBRAMYCIN 0.3% OP SOLN 5 ML OS ONE (20:35)
[2017-10-31 20:43] VITALS: BP 102/71
== END 2017-10-31 20:48 | disposition home or self-care (01) ==
LOC: ER 20:17
DX: S05.02XA Injury of conjunctiva and corneal abrasion without foreign body, left eye, initial encounter (principal)
CPT/HCPCS: 99283; A9270

== ENCOUNTER → 2018-02-16 | Outpatient (CLI) | payer MEDICARE, MEDICAID ==
[~2018-02-16] MED LIST changes: +IPRA3AMP10 IH; -IPRA3AMP21 IH; +MIRT-25 PO; +PANT40TA65 PO
[2018-02-16 17:17] LABS: PLATELET COUNT, AUTOMATED 260 K/uL (150-450)
[2018-02-16 17:35] LABS: LDL CHOLESTEROL 86 mg/dl
--- NOTE | 2018-02-16 17:42 | RADIOLOGY IMAGING REPORT ---
FACILITY: [facility] [place] PATIENT NAME: Gerry Mason : 1940 MR: [id number] V: [id number] EXAM DATE: ORDERING PHYSICIAN: HU HENDERSON TECHNOLOGIST: Location: [facility] Patient: Gerry Mason : 1940 Visit/Account:[id number] Date of Sevice: 02/16/2018 CHEST PA AND LAT COMPARISONS: 2 view chest dated July 28, 2017 ADDITIONAL PERTINENT HISTORY: COPD with chest pain and shortness of breath. FINDINGS: Cardiomediastinal silhouette: Negative. Pulmonary vasculature: Mild atherosclerotic disease of the thoracic aortic arch. Lung garcia: Hyperexpanded lung garcia with background interstitial scarring. Pleural spaces: Continued findings of pleural plaquing overlying the lateral aspects of the left wilberto thorax. Osseous structures: Negative. Surrounding soft tissues: Negative. IMPRESSION: 1. Continued findings of previous asbestos exposure. 2. Continued hyperexpanded lung garcia with background interstitial scarring. 3. No acute cardiopulmonary disease. Report Dictated By: Kaleb Bynum MD at 02/16/2018 5:37 PM Report E-Signed By: Kaleb Bynum MD at 02/16/2018 5:38 PM WSN:[id number]
--- NOTE | 2018-02-17 14:40 | EKG ---
FACILITY: [facility] PATIENT NAME: JESSICA JAVIER : [id number] MR: [id number] V: [id number] EXAM DATE: ORDERING PHYSICIAN: HU HENDERSON TECHNOLOGIST: ROSE MARY Test Reason : WEIGHTLOSS Blood Pressure : / mmHG Vent. Rate : 063 BPM Atrial Rate : 063 BPM P-R Int : 186 ms QRS Dur : 080 ms QT Int : 398 ms P-R-T Axes : 084 -57 066 degrees QTc Int : 407 ms Normal sinus rhythm Left axis deviation Abnormal ECG No previous ECGs available Referred By: Confirmed By:
== END ==
LOC: LAB 16:43
PROVIDERS: ATTEND Internal Medicine
DX: Z77.090 Contact with and (suspected) exposure to asbestos (principal); J44.9 Chronic obstructive pulmonary disease, unspecified; R63.4 Abnormal weight loss; J92.9 Pleural plaque without asbestos; E78.00 Pure hypercholesterolemia, unspecified; N40.1 Benign prostatic hyperplasia with lower urinary tract symptoms
CPT/HCPCS: 36415; 71046; 81001; 82040; 82247; 82310; 82374; 82435; 82465; 82565; 82728; 82947; 83540; 83550; 83718; 84075; 84132; 84153; 84155; 84295; 84443; 84450; 84460; 84478; 84520; 85025

== ENCOUNTER 2018-04-21 00:39 | Day surgery (SDC) | payer MEDICARE, MEDICAID ==
[~2018-04-21] VITALS: Ht 180.3 cm; Wt 66.7 kg
[~2018-04-21 00:39] MED LIST changes: +ASPI-1471 PO; +GOLYTE PO
[2018-04-21] MEDS ORDERED: LIDOCAINE MPF 1% 5 ML VIAL ONE (07:20)
[2018-04-21] MEDS ORDERED: PROPOFOL EMUL(*) 10MG/ML 20 ML 60 ML ONE (07:20)
[2018-04-21] MEDS: NORMOSOL R SOLN(*) 1000 ML BAG 1,000 ML IV PRN ×2 (07:40→10:44)
[2018-04-21 08:06] VITALS: BP 134/67
[2018-04-21 09:51] VITALS: BP 102/53
--- NOTE | 2018-04-21 10:09 | Short(Outpt) Discharge Summary ---
Discharge Summary Reason for Hosp/Final Diag: (1) History of colon polyps Status: Chronic Hospital Course & Plan: EGD with biopsies and colonoscopy completed without problems. (2) Unintentional weight loss Status: Chronic (3) GERD (gastroesophageal reflux disease) Status: Acute Departure Discharge to: Home, Self Care Discharge Instructions Home Meds Active Scripts Peg/Electrolytes (GOLYTELY SOLUTION) 4,000 Ml Soln, 1 GAL PO ONCE, #1 GAL 0 Refills Prov:SUZE VITALE MD 03/17/18 Pantoprazole Sodium (PANTOPRAZOLE SODIUM) 40 Mg Tablet.dr, 40 MG PO QDAY, #30 TAB.SR 6 Refills Prov:HU HENDERSON MD 02/16/18 Mirtazapine (MIRTAZAPINE) 30 Mg Tablet, 30 MG PO QHS, #90 TAB 1 Refill Prov:HU HENDERSON MD 02/16/18 Albuterol Sulfate (VENTOLIN HFA) 18 Gm Inh, 2 PUFF INH Q4-6H PRN for SHORTNESS OF BREATH, #3 INH 6 Refills albuterol is not helpful Prov:HU HENDERSON MD 08/31/17 Gabapentin (GABAPENTIN) 300 Mg Capsule, 300 MG PO BID, #180 CAPSULE 3 Refills Prov:HU HENDERSON MD 08/31/17 Ipratropium/Albuterol Sulfate (IPRAT-ALBUT 0.5-3(2.5) MG/3 ML) 3 Ml Ampul.neb, 3 ML IH QID PRN for DYSPNEA, #120 INH 9 Refills Prov:HU HENDERSON MD 07/28/17 Tamsulosin Hcl (TAMSULOSIN HCL) 0.4 Mg Cap.er.24h, 1 CAP PO HS, #90 CAP 3 Refills Prov:HU HENDERSON MD 07/28/17 Fluticasone Prop 50 Mcg Ns (FLONASE 50 MCG NS) 16 Gm [place].susp, 1 SPRAY NS BID, #1 BOT 12 Refills Prov:HU HENDERSON MD 07/28/16 Nebulizer Accessories (A.I.R.S. NEBULIZER) 1 Each Kit, 1 EACH MC QID PRN for DYSPNEA, #1 Prov:HU HENDERSON MD 07/24/15 Polyethylene Glycol 3350 (MIRALAX) 17 Gm Powd.pack, 17 GM PO QDAY, #30 PKT 3 Refills Prov:HU HENDERSON MD 07/11/15 Reported Medications Aspirin (ASPIR 81) 81 Mg Tablet.dr, 81 MG PO QDAY, TAB 03/17/18 Diet: Regular Activity: As Tolerated Special Instructions: Your upper endoscopy and your colonoscopy were completed without problems. I didn't see any abnormalities in your esophagus, stomach or duodenum although I did routine biopsies of your duodenum and stomach. Your colon prep wasn't very good and so I didn't get a good look at most of your colon in terms of detecting small polyps. I was able to see well enough that I feel confident that there are no cancers in your colon. I recommend you keep working on your diet as you are, let me know if you start losing weight again, and, if you are healthy enough to tolerate the procedure, you could consider a colonoscopy in 5 years due to your history of colon polyps. Problem Qualifiers (1) GERD (gastroesophageal reflux disease): Esophagitis presence: without esophagitis Qualified Codes: K21.9 - Gastro- esophageal reflux disease without esophagitis SUZE VITALE MD Apr 21, 2018 10:09
[2018-04-21 10:22] VITALS: BP 117/71
[2018-04-21 10:30] VITALS: BP 122/72
[2018-04-21 10:33] VITALS: BP 126/68
[2018-04-21 10:38] VITALS: BP 122/64
[2018-04-21] MEDS ORDERED: ONDANSETRON 4 MG/2 ML VIAL ONE (10:38)
[2018-04-21] MEDS ORDERED: LIDOCAINE/SOD BICARB 8.4% SYR ID ONE (11:20)
== END 2018-04-21 10:41 | disposition home or self-care (01) ==
LOC: OR 00:39
PROVIDERS: ATTEND Surgery
DX: Z12.11 Encounter for screening for malignant neoplasm of colon (principal); K21.9 Gastro-esophageal reflux disease without esophagitis; R63.4 Abnormal weight loss; Z86.010 Personal history of colon polyps
CPT/HCPCS: 00812; 36415; 43239; 83516; 87077; 88305; G0121; J2001; J2704; J2405

== ENCOUNTER 2018-04-21 10:50 | Emergency (ER) | payer MEDICARE, MEDICAID ==
--- NOTE | 2018-04-21 10:56 | ER Report ---
History and Physical Time Seen By : 10:53 HPI/ROS CHIEF COMPLAINT: Altered mental status HISTORY OF PRESENT ILLNESS: This is a 78 year old male. He was in the OR today for a colonoscopy, was in post-op and had a code blue called. He had an un eventful colonoscopy, sedation from Propofol. Had been having a few days of right sided abdominal pain that was new. After his colonoscopy, he was feeling nauseated, and then had an episode where he was confused and then lost consciousness. The post-op staff stated that he had no pulse but was still breathing. They started compressions briefly and then he regained a pulse. I responded to the code. Labs and EKG were obtained. He had a normal rhythm on the monitor. He was then brought to the ER. He was able to respond to commands in the post-op area, but was very weak. Similar on evaluation here in the ER. He is still having abdominal pain. Gave Zofran 4mg IV while in post-op and then gave Fentanyl 50mcg IV here in the ER. His girlfriend did state that he was very weak after the prep for the colonoscopy. REVIEW OF SYSTEMS: Constitutional: No fever or chills. Cardiovascular: No chest pain. Respiratory: No shortness of breath. Gastrointestinal: As above. Musculoskeletal: No musculoskeletal pain. Skin: No rashes. Neurological: No headache. Allergies: Coded Allergies: Mercurial Analogues (Verified Allergy, Severe, SWELLING, 10/31/17) iodine (Verified Allergy, Severe, SWELLING, 10/31/17) morphine (Verified Allergy, Severe, SWELLING, 10/31/17) Uncoded Allergies: SEASONAL ALLERGIES (Allergy, Mild, SNEEZING, 08/09/12) Home Meds Active Scripts Pantoprazole Sodium (PANTOPRAZOLE SODIUM) 40 Mg Tablet.dr, 40 MG PO QDAY, #30 TAB.SR 6 Refills Prov:HU HENDERSON MD 02/16/18 Mirtazapine (MIRTAZAPINE) 30 Mg Tablet, 30 MG PO QHS, #90 TAB 1 Refill Prov:HU HENDERSON MD 02/16/18 Albuterol Sulfate (VENTOLIN HFA) 18 Gm Inh, 2 PUFF INH Q4-6H PRN for SHORTNESS OF BREATH, #3 INH 6 Refills albuterol is not helpful Prov:HU HENDERSON MD 08/31/17 Gabapentin (GABAPENTIN) 300 Mg Capsule, 300 MG PO BID, #180 CAPSULE 3 Refills Prov:HU HENDERSON MD 08/31/17 Ipratropium/Albuterol Sulfate (IPRAT-ALBUT 0.5-3(2.5) MG/3 ML) 3 Ml Ampul.neb, 3 ML IH QID PRN for DYSPNEA, #120 INH 9 Refills Prov:HU HENDERSON MD 07/28/17 Tamsulosin Hcl (TAMSULOSIN HCL) 0.4 Mg Cap.er.24h, 1 CAP PO HS, #90 CAP 3 Refills Prov:HU HENDERSON MD 07/28/17 Fluticasone Prop 50 Mcg Ns (FLONASE 50 MCG NS) 16 Gm [place].susp, 1 SPRAY NS BID, #1 BOT 12 Refills Prov:HU HENDERSON MD 07/28/16 Nebulizer Accessories (A.I.R.S. NEBULIZER) 1 Each Kit, 1 EACH MC QID PRN for DYSPNEA, #1 Prov:HU HENEDRSON MD 07/24/15 Polyethylene Glycol 3350 (MIRALAX) 17 Gm Powd.pack, 17 GM PO QDAY, #30 PKT 3 Refills Prov:HU HENDERSON MD 07/11/15 Reported Medications Aspirin (ASPIR 81) 81 Mg Tablet.dr, 81 MG PO QDAY, TAB 03/17/18 Discontinued Scripts Peg/Electrolytes (GOLYTELY SOLUTION) 4,000 Ml Soln, 1 GAL PO ONCE, #1 GAL 0 Refills Prov:SUZE VITALE MD 03/17/18 Reviewed Nurses Notes: Yes Hx Smoking: Yes (1/2PPD) Smoking Status: Current: Every Day Smoker Exposure to Second Hand Smoke?: No Hx Substance Use Disorder: No Hx Alcohol Use: Yes (rare) Constitutional Vital Sign - Last 24 Hours 04/21/18 04/21/18 04/21/18 04/21/18 10:58 11:00 11:00 11:05 Pulse 66 68 Resp 24 13 B/P (MAP) 122/67 119/69 (86) 118/68 (85) Pulse Ox 95 98 O2 Delivery Oxy Mask O2 Flow Rate 10.0 11/28/18 04/21/18 04/21/18 04/21/18 11:30 11:45 11:50 11:55 Pulse 63 67 Resp 14 18 B/P (MAP) 109/62 (78) 118/70 (86) 126/70 (88) Pulse Ox 95 96 04/21/18 04/21/18 04/21/18 04/21/18 12:00 12:05 12:10 12:15 Pulse 66 64 Resp 12 10 B/P (MAP) 119/68 (85) 123/68 (86) 118/65 (82) 113/69 (84) Pulse Ox 96 95 04/21/18 04/21/18 04/21/18 04/21/18 12:20 12:25 12:30 12:35 Pulse 63 Resp 19 B/P (MAP) 117/68 (84) 117/68 (84) 119/67 (84) 117/61 (79) Pulse Ox 95 04/21/18 04/21/18 04/21/18 04/21/18 12:40 12:45 12:50 12:55 Pulse 67 Resp 12 B/P (MAP) 120/68 (85) 115/69 (84) 117/65 (82) 116/67 (83) Pulse Ox 98 04/21/18 19:13 O2 Flow Rate 2.0 Physical Exam General Appearance: The patient is alert, but very weak. He is able to follow commands, but limited. No acute distress. Eyes: Pupil on the left is round. Bad right eye cloudy, but round pupil. Left is Reactive to light. No pallor, injection or icterus. ENT: Mucous membranes are dry. Otherwise normal oral mucosa. Posterior oropharynx is normal. Neck: Supple and non tender. Respiratory: Lungs are clear to auscultation. Cardiovascular: Regular rate and rhythm. No murmurs, gallops or rubs. Normal capillary refill. Blood pressures have been stable. Gastrointestinal: Abdomen is soft with tenderness on the right abdomen. Nondistended. He has guarding. Bowel sounds hyperactive. Neurological: Alert and oriented x3. No focal neurologic deficits Skin: Warm and dry. DIFFERENTIAL DIAGNOSIS: After history and physical exam, differential diagnosis was considered for altered mental status after a code in post-op are of the OR today. Medical Decision Making Data Points Result Diagram: 04/21/18 1040 04/21/18 1040 Laboratory Hematology Test 04/21/18 10:40 04/21/18 13:19 04/21/18 13:37 Red Blood Count 4.87 M/uL (4.00-5.60) Mean Corpuscular Volume 93.2 fL (80.0-96.0) Mean Corpuscular Hemoglobin 31.6 pg (26.0-33.0) Mean Corpuscular Hemoglobin Concent 33.9 g/dL (32.0-36.0) Red Cell Distribution Width 14.1 % (11.5-14.5) Mean Platelet Volume 7.2 fL (7.2-11.1) Neutrophils (%) (Auto) 72.2 % (39.4-72.5) Lymphocytes (%) (Auto) 19.5 % (17.6-49.6) Monocytes (%) (Auto) 6.7 % (4.1-12.4) Eosinophils (%) (Auto) 0.9 % (0.4-6.7) Basophils (%) (Auto) 0.7 % (0.3-1.4) Nucleated RBC Relative Count (auto) 0.1 /100WBC Neutrophils # (Auto) 4.6 K/uL (2.0-7.4) Lymphocytes # (Auto) 1.2 K/uL (1.3-3.6) Monocytes # (Auto) 0.4 K/uL (0.3-1.0) Eosinophils # (Auto) 0.1 K/uL (0.0-0.5) Basophils # (Auto) 0.0 K/uL (0.0-0.1) Nucleated RBC Absolute Count (auto) 0.00 K/uL Sodium Level 138 mmol/L (137-145) Potassium Level 4.3 mmol/L (3.5-5.0) Chloride Level 103 mmol/L (98-107) Carbon Dioxide Level 27 mmol/L (22-30) Blood Urea Nitrogen 16 mg/dl (9-21) Creatinine 1.00 mg/dl (0.66-1.25) Glomerular Filtration Rate Calc > 60.0 Random Glucose 72 mg/dl (75-110) Lactate 1.3 mmol/L (0.7-2.1) Calcium Level 8.9 mg/dl (8.4-10.2) Total Bilirubin 2.0 mg/dl (0.2-1.3) Aspartate Amino Transf (AST/SGOT) 22 U/L (0-35) Alanine Aminotransferase (ALT/SGPT) 27 U/L (0-56) Alkaline Phosphatase 65 U/L (0-126) Total Protein 5.9 g/dl (6.3-8.2) Albumin 3.5 g/dl (3.5-5.0) Urine Color Yellow Urine Clarity Clear Urine pH 5.0 pH (4.8-9.5) Urine Specific [place] 1.012 Urine Protein Negative mg/dL (NEGATIVE) Urine Glucose (UA) Negative mg/dL (NEGATIVE) Urine Ketones 20 mg/dL (NEGATIVE) Urine Blood Negative (NEGATIVE) Urine Nitrite Negative (NEGATIVE) Urine Bilirubin Negative (NEGATIVE) Urine Urobilinogen Negative mg/dL (0.2-1.9) Urine Leukocyte Esterase Negative (NEGATIVE) Urine RBC None /HPF (0-2/HPF) Urine WBC 1 /HPF (0-5/HPF) Urine Squamous Epithelial Cells None /LPF (</=FEW) Urine Bacteria Negative /HPF (NONE-FEW) Urine Mucus None /HPF (NONE-FEW) Troponin I < 0.012 ng/ml Chemistry Test 04/21/18 10:40 04/21/18 13:19 04/21/18 13:37 White Blood Count 6.3 k/uL (4.5-11.0) Red Blood Count 4.87 M/uL (4.00-5.60) Hemoglobin 15.4 g/dL (14.0-18.0) Hematocrit 45.4 % (42.0-52.0) Mean Corpuscular Volume 93.2 fL (80.0-96.0) Mean Corpuscular Hemoglobin 31.6 pg (26.0-33.0) Mean Corpuscular Hemoglobin Concent 33.9 g/dL (32.0-36.0) Red Cell Distribution Width 14.1 % (11.5-14.5) Platelet Count 260 K/uL (150-450) Mean Platelet Volume 7.2 fL (7.2-11.1) Neutrophils (%) (Auto) 72.2 % (39.4-72.5) Lymphocytes (%) (Auto) 19.5 % (17.6-49.6) Monocytes (%) (Auto) 6.7 % (4.1-12.4) Eosinophils (%) (Auto) 0.9 % (0.4-6.7) Basophils (%) (Auto) 0.7 % (0.3-1.4) Nucleated RBC Relative Count (auto) 0.1 /100WBC Neutrophils # (Auto) 4.6 K/uL (2.0-7.4) Lymphocytes # (Auto) 1.2 K/uL (1.3-3.6) Monocytes # (Auto) 0.4 K/uL (0.3-1.0) Eosinophils # (Auto) 0.1 K/uL (0.0-0.5) Basophils # (Auto) 0.0 K/uL (0.0-0.1) Nucleated RBC Absolute Count (auto) 0.00 K/uL Glomerular Filtration Rate Calc > 60.0 Lactate 1.3 mmol/L (0.7-2.1) Calcium Level 8.9 mg/dl (8.4-10.2) Total Bilirubin 2.0 mg/dl (0.2-1.3) Aspartate Amino Transf (AST/SGOT) 22 U/L (0-35) Alanine Aminotransferase (ALT/SGPT) 27 U/L (0-56) Alkaline Phosphatase 65 U/L (0-126) Total Protein 5.9 g/dl (6.3-8.2) Albumin 3.5 g/dl (3.5-5.0) Urine Color Yellow Urine Clarity Clear Urine pH 5.0 pH (4.8-9.5) Urine Specific [place] 1.012 Urine Protein Negative mg/dL (NEGATIVE) Urine Glucose (UA) Negative mg/dL (NEGATIVE) Urine Ketones 20 mg/dL (NEGATIVE) Urine Blood Negative (NEGATIVE) Urine Nitrite Negative (NEGATIVE) Urine Bilirubin Negative (NEGATIVE) Urine Urobilinogen Negative mg/dL (0.2-1.9) Urine Leukocyte Esterase Negative (NEGATIVE) Urine RBC None /HPF (0-2/HPF) Urine WBC 1 /HPF (0-5/HPF) Urine Squamous Epithelial Cells None /LPF (</=FEW) Urine Bacteria Negative /HPF (NONE-FEW) Urine Mucus None /HPF (NONE-FEW) Troponin I < 0.012 ng/ml Urinalysis Test 04/21/18 13:19 Urine Color Yellow Urine Clarity Clear Urine pH 5.0 pH (4.8-9.5) Urine Specific [place] 1.012 Urine Protein Negative mg/dL (NEGATIVE) Urine Glucose (UA) Negative mg/dL (NEGATIVE) Urine Ketones 20 mg/dL (NEGATIVE) Urine Blood Negative (NEGATIVE) Urine Nitrite Negative (NEGATIVE) Urine Bilirubin Negative (NEGATIVE) Urine Urobilinogen Negative mg/dL (0.2-1.9) Urine Leukocyte Esterase Negative (NEGATIVE) Urine RBC None /HPF (0-2/HPF) Urine WBC 1 /HPF (0-5/HPF) Urine Squamous Epithelial Cells None /LPF (</=FEW) Urine Bacteria Negative /HPF (NONE-FEW) Urine Mucus None /HPF (NONE-FEW) EKG/Imaging EKG Interpretation 12 lead EKG: At 10:37 hours Rhythm: Normal sinus rhythm, rate 61 Pep: normal QRS: normal ST segments: No ST elevation or depression. Nonspecific flattening of the T waves in the inferior leads 12 lead EKG: Rhythm: Normal sinus rhythm, rate 65 Pep: Left axis deviation QRS: normal ST segments: As above Unchanged Imaging CT BRAIN WITHOUT CONTRAST CLINICAL INDICATION: Altered consciousness COMPARISON: CT dated October 21, 2017. TECHNIQUE: Contiguous axial CT images of the brain were obtained without IV contrast. Sagittal and coronal reformatted images were also performed. One of the following dose optimization techniques was utilized in the performance of this exam: Automated exposure control; adjustment of the mA a nd/or kV according to the patient's size; or use of an iterative reconstruction technique. Specific details can be referenced in the facility's radiology CT exam operational policy. RESULT: BRAIN: Mild prominence of the ventricles and sulci is consistent with atrophy. There are few scattered areas of low attenuation in the periventricular and subcortical white matter which are nonspecific, but suggestive of chronic microvascular ischemic change. The brainstem and cerebellum appear normal. The basilar cisterns appear normal. There is no acute infarct, hemorrhage or shift of midline. Vascular atherosclerotic calcifications are present. 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 PARANASAL SINUSES & MASTOIDS: Multiple retention cysts within the maxillary si nuses, grossly unchanged. Unchanged retention cyst versus proteinaceous chronic secretions within the sphenoid sinus SKULL BASE & CRANIUM: Visualized osseous structures are intact. SOFT TISSUES: No soft tissue swelling or hematoma is appreciated. IMPRESSION: 1. No acute findings. 2. Chronic findings, as above. Report Dictated By: Dick Fuller MD at 04/21/2018 12:25 PM CHEST/AB/PELV W/OUT CONTRAST HISTORY: colonoscopy today, right abd pain, altered consciousnes TECHNIQUE: CT chest, abdomen and pelvis without intravenous contrast. One of the following dose optimization techniques was utilized in the performance of this exam: Automated exposure control; adjustment of the mA and/or kV according to the patient's size; or use of an iterative reconstruction technique. Specific details can be referenced in the facility's radiology CT exam operational policy. CONTRAST: None. Please note, lack of IV contrast limits evaluation of solid organs. COMPARISON: CT dated October 21, 2017. FINDINGS: CHEST: Heart/vessels: Mild calcifications within the coronary arteries. Mild prominence of the pulmonary arteries which is nonspecific however could be seen with pulmonary hypertension. Mild atherosclerosis within the aortic arch. Otherwise negative. Mediastinum: Negative. Lymph nodes: Negative. Lungs/pleura: Scattered calcified pleural plaques. Mild/moderate diffuse bronchial wall thickening within the lower lobes with scattered airway secretions/mucous plugging. Calcified granuloma within the left lower lobe. Bones/soft tissues: Chronic healed right rib fractures. There are 2 surgical screws within the lateral aspect of the left clavicle. No acute or concerning osseous abnormality. ABDOMEN/PELVIS: Hepatobiliary: Tiny hyperattenuation layering within the gallbladder lumen, likely representing a small gallstone. No evidence for acute cholecystitis. Otherwise negative. Spleen: Negative. Adrenals: Negative. Pancreas: Negative. Kidneys/: Cyst within the superior left kidney measuring up to 2.9 cm. Otherwise negative. GI: Mild sigmoid diverticulosis without evidence for diverticulitis. Questionable mild wall thickening within the proximal ascending colon with mild pericolonic inflammation. No adjacent free air to suggest perforation. Vessels/spaces/nodes: Mild/moderate atherosclerosis. No free air or free fluid. No lymphadenopathy. Incidental note of a circumaortic left renal vein. Bones/soft tissues: Unremarkable postoperative appearance of partially visualized right hip arthroplasty and lumbar fusion hardware. There is 11 mm anterolisthesis of L4 on L5. IMPRESSION: 1. Questionable mild wall thickening and pericolonic inflammation within the ascending colon without evidence for perforation. Findings may be postprocedural in etiology. Otherwise, no potential sequela/comp location of colonoscopy identified throughout the chest, abdomen, or pelvis. 2. Incidental/chronic findings, as above. Report Dictated By: Dick Fuller MD at 04/21/2018 12:16 PM ED Course/Re-evaluation Clinical Indication for ER IV: Hydration, IV Access ED Course Labs negative. Imaging negative. After a period of time, the patient awoke and regained normal level of consciousness. [place] normal and requesting to go home. Decision to Disposition Date: Apr 21, 2018 Decision to Disposition Time: 14:23 Depart Departure Latest Vital Signs Vital Signs Date Time Temp Pulse Resp B/P (MAP) Pulse Ox O2 Delivery O2 Flow Rate FiO2 04/21/18 19:13 2.0 04/21/18 12:55 116/67 (83) 04/21/18 12:45 67 12 98 04/21/18 10:58 Oxy Mask Impression: Primary Impression: Altered mental status Condition: Improved Disposition: HOME OR SELF-CARE Referrals: HU HENDERSON MD (PCP) Patient Instructions: Altered Mental Status (ED) Additional Instructions: We think that your temporary altered mental status was a combination of being a little dehydrated and the effects of the sedation and procedure. Rest and increase fluid intake over the next few days. Return to the ER if you have having further problems. Problem Qualifiers Primary Impression: Altered mental status Altered mental status type: transient alteration of awareness Qualified Codes: R40.4 - Transient alteration of awareness SOY MAGALLON MD Apr 21, 2018 10:56
[2018-04-21] MEDS ORDERED: fentaNYL CITR 100 MCG/2 ML AMP IVP ONE (11:00)
[2018-04-21 11:20] LABS: PLATELET COUNT, AUTOMATED 260 K/uL (150-450)
--- NOTE | 2018-04-21 12:30 | RADIOLOGY IMAGING REPORT ---
FACILITY: [facility] - [place] PATIENT NAME: Gerry Mason : 1940 MR: [id number] V: [id number] EXAM DATE: ORDERING PHYSICIAN: SOY MAGALLON TECHNOLOGIST: Location: [facility] - [place] Patient: Gerry Mason : 1940 Visit/Account:[id number] Date of Sevice: 04/21/2018 CHEST/AB/PELV W/OUT CONTRAST HISTORY: colonoscopy today, right abd pain, altered consciousnes TECHNIQUE: CT chest, abdomen and pelvis without intravenous contrast. One of the following dose optimization techniques was utilized in the performance of this exam: Autom ated exposure control; adjustment of the mA and/or kV according to the patient's size; or use of an i terative reconstruction technique. Specific details can be referenced in the facility's radiology C T exam operational policy. CONTRAST: None. Please note, lack of IV contrast limits evaluation of solid organs. COMPARISON: CT dated October 21, 2017. FINDINGS: CHEST: Heart/vessels: Mild calcifications within the coronary arteries. Mild prominence of the pulmonary a rteries which is nonspecific however could be seen with pulmonary hypertension. Mild atherosclerosis within the aortic arch. Otherwise negative. Mediastinum: Negative. Lymph nodes: Negative. Lungs/pleura: Scattered calcified pleural plaques. Mild/moderate diffuse bronchial wall thickening within the lower lobes with scattered airway secretions/mucous plugging. Calcified granuloma within the left lower lobe. Bones/soft tissues: Chronic healed right rib fractures. There are 2 surgical screws within the late ral aspect of the left clavicle. No acute or concerning osseous abnormality. ABDOMEN/PELVIS: Hepatobiliary: Tiny hyperattenuation layering within the gallbladder lumen, likely representing a sm all gallstone. No evidence for acute cholecystitis. Otherwise negative. Spleen: Negative. Adrenals: Negative. Pancreas: Negative. Kidneys/: Cyst within the superior left kidney measuring up to 2.9 cm. Otherwise negative. GI: Mild sigmoid diverticulosis without evidence for diverticulitis. Questionable mild wall thicken ing within the proximal ascending colon with mild pericolonic inflammation. No adjacent free air to suggest perforation. Vessels/spaces/nodes: Mild/moderate atherosclerosis. No free air or free fluid. No lymphadenopathy . Incidental note of a circumaortic left renal vein. Bones/soft tissues: Unremarkable postoperative appearance of partially visualized right hip arthropl asty and lumbar fusion hardware. There is 11 mm anterolisthesis of L4 on L5. IMPRESSION: 1. Questionable mild wall thickening and pericolonic inflammation within the ascending colon without evidence for perforation. Findings may be postprocedural in etiology. Otherwise, no potential sequ lobo/comp location of colonoscopy identified throughout the chest, abdomen, or pelvis. 2. Incidental/chronic findings, as above. Report Dictated By: Dick Fuller MD at 04/21/2018 12:16 PM Report E-Signed By: Dick Fuller MD at 04/21/2018 12:25 PM WSN:[id number]
--- NOTE | 2018-04-21 12:33 | RADIOLOGY IMAGING REPORT ---
FACILITY: [facility] PATIENT NAME: Gerry Mason : 1940 MR: [id number] V: [id number] EXAM DATE: ORDERING PHYSICIAN: SOY MAGALLON TECHNOLOGIST: [place] [facility] [place] : 1940 Visit/Account:[id number] Date of Sevice: 04/21/2018 CT BRAIN WITHOUT CONTRAST CLINICAL INDICATION: Altered consciousness COMPARISON: CT dated October 21, 2017. TECHNIQUE: Contiguous axial CT images of the brain were obtained without IV contrast. Sagittal and co liss reformatted images were also performed. One of the following dose optimization techniques was utilized in the performance of this exam: Autom ated exposure control; adjustment of the mA and/or kV according to the patient's size; or use of an i terative reconstruction technique. Specific details can be referenced in the facility's radiology C T exam operational policy. RESULT: BRAIN: Mild prominence of the ventricles and sulci is consistent with atrophy. There are few scattere d areas of low attenuation in the periventricular and subcortical white matter which are nonspecific, but suggestive of chronic microvascular ischemic change. The brainstem and cerebellum appear normal . The basilar cisterns appear normal. There is no acute infarct, hemorrhage or shift of midline. Vas cular atherosclerotic calcifications are present. 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 PARANASAL SINUSES & MASTOIDS: Multiple retention cysts within the maxillary sinuses, grossly unchange d. Unchanged retention cyst versus proteinaceous chronic secretions within the sphenoid sinus SKULL BASE & CRANIUM: Visualized osseous structures are intact. SOFT TISSUES: No soft tissue swelling or hematoma is appreciated. IMPRESSION: 1. No acute findings. 2. Chronic findings, as above. Report Dictated By: Dick Fuller MD at 04/21/2018 12:25 PM Report E-Signed By: Dick Fuller MD at 04/21/2018 12:29 PM WSN:[id number]
[2018-04-21 12:55] VITALS: BP 116/67
--- NOTE | 2018-04-21 13:42 | EKG ---
FACILITY: [facility] PATIENT NAME: JESSICA JAVIER : [id number] MR: [id number] V: [id number] EXAM DATE: ORDERING PHYSICIAN: SOY MAGALLON TECHNOLOGIST: MATA Jacobo Reason : REPEAT Blood Pressure : / mmHG Vent. Rate : 065 BPM Atrial Rate : 065 BPM P-R Int : 182 ms QRS Dur : 076 ms QT Int : 414 ms P-R-T Axes : 070 -52 042 degrees QTc Int : 430 ms Normal sinus rhythm Left axis deviation Abnormal ECG When compared with ECG of 16-FEB-2018 15:48, No significant change was found Confirmed by Rafat Parry ([id number]) on 04/21/2018 6:56:02 PM Referred By: NUAN Confirmed By:Rafat Hunter
--- NOTE | 2018-04-21 13:46 | EKG ---
FACILITY: [facility] - [place] PATIENT NAME: JESSICA JAVIER : [id number] MR: [id number] V: [id number] EXAM DATE: ORDERING PHYSICIAN: SOY MAGALLON TECHNOLOGIST: Test Reason : Blood Pressure : / mmHG Vent. Rate : 061 BPM Atrial Rate : 061 BPM P-R Int : 192 ms QRS Dur : 074 ms QT Int : 420 ms P-R-T Axes : 071 -51 031 degrees QTc Int : 422 ms Normal sinus rhythm Left axis deviation Abnormal ECG When compared with ECG of 02.18.2018 No significant change was found Confirmed by Rafat Parry ([id number]) on 04/21/2018 6:53:21 PM Referred By: Confirmed By:Rafat Hunter
== END 2018-04-21 14:25 | disposition home or self-care (01) ==
LOC: ER 10:58
DX: R40.4 Transient alteration of awareness (principal); Z98.890 Other specified postprocedural states
CPT/HCPCS: 36415; 70450; 71250; 74176; 81001; 83605; 84484; 85025; 93005; 96374; 99284; J3010; 82040; 82247; 82310; 82374; 82435; 82565; 82947; 84075; 84132; 84155; 84295; 84450; 84460; 84520

== ENCOUNTER → 2018-06-14 | Outpatient (CLI) | payer MEDICARE, MEDICAID ==
[~2018-06-14] MED LIST changes: -GABA-503 PO; +GABA-533 PO
--- NOTE | 2018-06-14 15:48 | RADIOLOGY IMAGING REPORT ---
[place] [facility] [place] NAME: Gerry Mason : 1940 MR: [id number] V: [id number] EXAM DATE: ORDERING PHYSICIAN: ALBERTO RASCON TECHNOLOGIST: Location: [facility] Patient: Gerry Mason : 1940 Visit/Account:[id number] Date of Sevice: 06/14/2018 CT CHEST W/O CONTRAST History: Pleural plaques TECHNIQUE: Contiguous axial images were performed through the chest to the level of the adrenal gla nds. No IV contrast was administered. Coronal and sagittal reformatting was also performed.Dose Lower ing Technique One of the following dose optimization techniques was utilized in the performance of this exam: Autom ated exposure control; adjustment of the mA and/or kV according to the patient's size; or use of an i terative reconstruction technique. Specific details can be referenced in the facility's radiology C T exam operational policy. COMPARISON STUDIES: April 13, 2018. Lungs / Pleura: Scattered calcified pleural plaques are again seen bilaterally. The previously reported mild to moderate diffuse peribronchial thickening now appears mild. There are retained secretions within the lower trachea just above the [place]. There is mild linear scar scarring in the lower lobes. No significant air trapping identified. Calcified granuloma noted in the left lower lobe Mediastinum/nodes: negative. Heart and vessels: There mild atherosclerotic calcifications in the thoracic aorta and branch vessel s including the coronary arteries. Musculoskeletal / Body wall: Old right-sided rib fractures and mild spondylotic changes of the thor acic spine again seen Upper abdomen: 2.8 cm cyst upper pole the left kidney Cholelithiasis IMPRESSION: Scattered calcified pleural plaques appear relatively unchanged when compared the prior study Previously reported mild to moderate diffuse Bronchial thickening now appears mild There are retained secretions within the lower trachea Cholelithiasis Report Dictated By: Rosa Maria Clemente MD at 06/14/2018 3:34 PM Report E-Signed By: Rosa Maria Clemente MD at 06/14/2018 3:45 PM WSN:[id number]
== END ==
LOC: CT 13:45
PROVIDERS: ATTEND Internal Medicine
DX: J92.9 Pleural plaque without asbestos (principal); K80.20 Calculus of gallbladder without cholecystitis without obstruction
CPT/HCPCS: 71250

== ENCOUNTER 2018-06-18 23:18 | Emergency (ER) | payer MEDICARE, MEDICAID ==
--- NOTE | 2018-06-18 23:29 | ER Report ---
History and Physical Time Seen By : 23:29 HPI/ROS CHIEF COMPLAINT: short of breath HISTORY OF PRESENT ILLNESS: This is a 78 year old male. He has COPD and uses inhaled medication, recently started on inhaled steroid. Has had a couple of days of cough and worsening breathing despite his medicines. [place] much worse tonight. Has home oxygen which he uses at night. Has had some subjective fevers, no chills. Non-productive cough, which has worsened. No chest pain, but tight with breathing. No nausea or vomiting. Normal bowel and bladder function. Allergies: Coded Allergies: Mercurial Analogues (Verified Allergy, Severe, SWELLING, 10/31/17) iodine (Verified Allergy, Severe, SWELLING, 10/31/17) morphine (Verified Allergy, Severe, SWELLING, 10/31/17) Uncoded Allergies: SEASONAL ALLERGIES (Allergy, Mild, SNEEZING, 08/09/12) Home Meds Active Scripts Benzonatate 100 Mg Cap (TESSALON PERLE 100 MG CAP) 100 Mg Capsule, 100 MG PO TID, #15 CAP Prov:SOY MAGALLON MD 06/19/18 Oseltamivir Phosphate (TAMIFLU) 75 Mg Cap, 75 MG PO BID, #10 CAP 0 Refills Prov:SOY MAGALLON MD 06/19/18 Prednisone (PREDNISONE) 20 Mg Tablet, 60 MG PO QDAY, #12 TAB 0 Refills Prov:SOY MAGALLON MD 06/19/18 Mirtazapine (MIRTAZAPINE) 30 Mg Tablet, 30 MG PO QHS, #90 TAB 1 Refill Prov:HU HENDERSON MD 04/28/18 Pantoprazole Sodium (PANTOPRAZOLE SODIUM) 40 Mg Tablet.dr, 40 MG PO QDAY, #30 TAB.SR 6 Refills Prov:HU HENDERSON MD 02/16/18 Albuterol Sulfate (VENTOLIN HFA) 18 Gm Inh, 2 PUFF INH Q4-6H PRN for SHORTNESS OF BREATH, #3 INH 6 Refills albuterol is not helpful Prov:HU HENDERSON MD 08/31/17 Gabapentin (GABAPENTIN) 300 Mg Capsule, 300 MG PO BID, #180 CAPSULE 3 Refills Prov:HU HENDERSON MD 08/31/17 Ipratropium/Albuterol Sulfate (IPRAT-ALBUT 0.5-3(2.5) MG/3 ML) 3 Ml Ampul.neb, 3 ML IH QID PRN for DYSPNEA, #120 INH 9 Refills Prov:HU HENDERSON MD 07/28/17 Tamsulosin Hcl (TAMSULOSIN HCL) 0.4 Mg Cap.er.24h, 1 CAP PO HS, #90 CAP 3 Refills Prov:HU HENDERSON MD 07/28/17 Fluticasone Prop 50 Mcg Ns (FLONASE 50 MCG NS) 16 Gm [place].susp, 1 SPRAY NS BID, #1 BOT 12 Refills Prov:HU HENDERSON MD 07/28/16 Nebulizer Accessories (A.I.R.S. NEBULIZER) 1 Each Kit, 1 EACH QID PRN for DYSPNEA, #1 Prov:HU HENDERSON MD 07/24/15 Polyethylene Glycol 3350 (MIRALAX) 17 Gm Powd.pack, 17 GM PO QDAY, #30 PKT 3 Refills Prov:HU HENDERSON MD 07/11/15 Reported Medications Aspirin (ASPIR 81) 81 Mg Tablet.dr, 81 MG PO QDAY, TAB 03/17/18 Reviewed Nurses Notes: Yes Hx Smoking: Yes (1/2PPD) Smoking Status: Current: Every Day Smoker Exposure to Second Hand Smoke?: No Hx Substance Use Disorder: No Hx Alcohol Use: Yes (rare) Constitutional Vital Sign - Last 24 Hours 06/18/18 06/18/18 06/18/18 06/18/18 23:18 23:25 23:27 23:36 Temp 100.9 Pulse ??? 88 Resp 21 B/P (MAP) 156/77 156/77 (103) Pulse Ox 70 O2 Delivery Room Air O2 Flow Rate 10.0 06/18/18 06/18/18 06/19/18 06/19/18 23:36 23:48 00:00 00:06 Pulse 75 Resp 22 B/P (MAP) 120/87 (98) 123/68 (86) Pulse Ox 93 94 O2 Delivery Oxy Mask O2 Flow Rate 5.0 06/19/18 06/19/18 06/19/18 06/19/18 00:09 00:18 00:30 00:48 Pulse 78 77 89 Resp 20 28 25 B/P (MAP) 123/75 (91) Pulse Ox 91 90 06/19/18 06/19/18 00:58 01:00 Pulse 84 Resp 20 B/P (MAP) 101/60 (74) Physical Exam General Appearance: Alert. No immediate need for airway protection. No acute distress. Eyes: Pupils are equal, round. No pallor, injection or icterus. ENT: Mucous membranes are moist. Normal oral mucosa. Posterior oropharynx is normal. Normal tympanic membranes and canals. Neck: Supple and non tender. No lymphadenopathy. Respiratory: Lungs with wheezing on expiration and poor air movement. There are no retractions or accessory muscle use. Coughing fits during exam, nonproductive. Hypoxia on room air, improved with oxy-mask. Cardiovascular: Regular rate and rhythm. No murmurs, gallops or rubs. Normal capillary refill. Gastrointestinal: Abdomen is soft and non tender. Nondistended. Neurological: Alert and oriented x3. No focal neurologic deficits Skin: Warm and dry. No rashes. Musculoskeletal: No tenderness in palpation of the back and spine. DIFFERENTIAL DIAGNOSIS: After history and physical exam, differential diagnosis was considered for ED shortness breath differential Medical Decision Making Data Points Result Diagram: 06/18/18 2331 06/18/18 2331 Laboratory Hematology Test 06/18/18 23:31 06/19/18 01:04 Red Blood Count 5.31 M/uL (4.00-5.60) Mean Corpuscular Volume 91.2 fL (80.0-96.0) Mean Corpuscular Hemoglobin 30.7 pg (26.0-33.0) Mean Corpuscular Hemoglobin Concent 33.7 g/dL (32.0-36.0) Red Cell Distribution Width 14.1 % (11.5-14.5) Mean Platelet Volume 7.2 fL (7.2-11.1) Neutrophils (%) (Auto) 80.2 % (39.4-72.5) Lymphocytes (%) (Auto) 10.1 % (17.6-49.6) Monocytes (%) (Auto) 7.7 % (4.1-12.4) Eosinophils (%) (Auto) 0.4 % (0.4-6.7) Basophils (%) (Auto) 1.6 % (0.3-1.4) Nucleated RBC Relative Count (auto) 0.0 /100WBC Neutrophils # (Auto) 5.8 K/uL (2.0-7.4) Lymphocytes # (Auto) 0.7 K/uL (1.3-3.6) Monocytes # (Auto) 0.6 K/uL (0.3-1.0) Eosinophils # (Auto) 0.0 K/uL (0.0-0.5) Basophils # (Auto) 0.1 K/uL (0.0-0.1) Nucleated RBC Absolute Count (auto) 0.00 K/uL Peripheral Blood Smear Yes Y/N Sodium Level 139 mmol/L (137-145) Potassium Level 3.8 mmol/L (3.5-5.0) Chloride Level 105 mmol/L (98-107) Carbon Dioxide Level 30 mmol/L (22-30) Blood Urea Nitrogen 9 mg/dl (9-21) Creatinine 1.00 mg/dl (0.66-1.25) Glomerular Filtration Rate Calc > 60.0 Random Glucose 135 mg/dl (75-110) Calcium Level 9.7 mg/dl (8.4-10.2) Total Bilirubin 0.5 mg/dl (0.2-1.3) Aspartate Amino Transf (AST/SGOT) 24 U/L (0-35) Alanine Aminotransferase (ALT/SGPT) 21 U/L (0-56) Alkaline Phosphatase 101 U/L (0-126) Total Protein 6.9 g/dl (6.3-8.2) Albumin 3.9 g/dl (3.5-5.0) Influenza Virus Type A (PCR) Positive (NEGATIVE) Influenza Virus Type B (PCR) Negative (NEGATIVE) Chemistry Test 06/18/18 23:31 06/19/18 01:04 White Blood Count 7.3 k/uL (4.5-11.0) Red Blood Count 5.31 M/uL (4.00-5.60) Hemoglobin 16.3 g/dL (14.0-18.0) Hematocrit 48.5 % (42.0-52.0) Mean Corpuscular Volume 91.2 fL (80.0-96.0) Mean Corpuscular Hemoglobin 30.7 pg (26.0-33.0) Mean Corpuscular Hemoglobin Concent 33.7 g/dL (32.0-36.0) Red Cell Distribution Width 14.1 % (11.5-14.5) Platelet Count 260 K/uL (150-450) Mean Platelet Volume 7.2 fL (7.2-11.1) Neutrophils (%) (Auto) 80.2 % (39.4-72.5) Lymphocytes (%) (Auto) 10.1 % (17.6-49.6) Monocytes (%) (Auto) 7.7 % (4.1-12.4) Eosinophils (%) (Auto) 0.4 % (0.4-6.7) Basophils (%) (Auto) 1.6 % (0.3-1.4) Nucleated RBC Relative Count (auto) 0.0 /100WBC Neutrophils # (Auto) 5.8 K/uL (2.0-7.4) Lymphocytes # (Auto) 0.7 K/uL (1.3-3.6) Monocytes # (Auto) 0.6 K/uL (0.3-1.0) Eosinophils # (Auto) 0.0 K/uL (0.0-0.5) Basophils # (Auto) 0.1 K/uL (0.0-0.1) Nucleated RBC Absolute Count (auto) 0.00 K/uL Peripheral Blood Smear Yes Y/N Glomerular Filtration Rate Calc > 60.0 Calcium Level 9.7 mg/dl (8.4-10.2) Total Bilirubin 0.5 mg/dl (0.2-1.3) Aspartate Amino Transf (AST/SGOT) 24 U/L (0-35) Alanine Aminotransferase (ALT/SGPT) 21 U/L (0-56) Alkaline Phosphatase 101 U/L (0-126) Total Protein 6.9 g/dl (6.3-8.2) Albumin 3.9 g/dl (3.5-5.0) Influenza Virus Type A (PCR) Positive (NEGATIVE) Influenza Virus Type B (PCR) Negative (NEGATIVE) EKG/Imaging Imaging AP CHEST 06/18/2018 11:48 PM. INDICATION: Cough, shortness of breath. RAD COMPARISON: CT 06/14/2018, chest radiographs 02/16/2018. FINDINGS: Lungs are well-expanded. No suspicious consolidation. Pleural plaques as previously seen. No pleural effusion or pneumothorax. Heart size is normal. Remote rib fractures. Incompletely imaged cervical hardware. Fixation screws in the left clavicle. IMPRESSION: 1. No acute abnormality. 2. 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 Report Dictated By: Remy Garrett MD at 06/19/2018 12:53 AM ED Course/Re-evaluation Clinical Indication for ER IV: IV Access ED Course DuoNeb nebulizer initially followed by 2 albuterol nebulizers. Solu-Medrol 125mg IV dose given. Much improved. Still coughing, but better air movement and less wheezing. Imaging with chronic scarring, but no acute pneumonia. Influenza A positive. Started on Prednisone, Tamiflu, and continuous oxygen instead of just at night time. Benzonatate to help with cough. Discharged home, instructions to return if not improving and consider need to admission at that point. Decision to Disposition Date: Jun 19, 2018 Decision to Disposition Time: 01:49 Depart Departure Latest Vital Signs Vital Signs Date Time Temp Pulse Resp B/P (MAP) Pulse Ox O2 Delivery O2 Flow Rate FiO2 06/19/18 01:00 101/60 (74) 06/19/18 00:58 84 20 06/19/18 00:48 90 06/19/18 00:06 Oxy Mask 5.0 06/18/18 23:25 100.9 Impression: Primary Impression: COPD exacerbation Condition: Improved Disposition: HOME OR SELF-CARE Referrals: HU HENDERSON MD (PCP) New Scripts Benzonatate 100 Mg Cap (TESSALON PERLE 100 MG CAP) 100 Mg Capsule 100 MG PO TID, #15 CAP Prov: SOY MAGALLON MD 06/19/18 Oseltamivir Phosphate (TAMIFLU) 75 Mg Cap 75 MG PO BID, #10 CAP 0 Refills Prov: SOY MAGALLON MD 06/19/18 Prednisone (PREDNISONE) 20 Mg Tablet 60 MG PO QDAY, #12 TAB 0 Refills Prov: SOY MAGALLON MD 06/19/18 Patient Instructions: COPD (Chronic Obstructive Pulmonary Disease) (ED) Additional Instructions: Take the steroid Prednisone 20mg tablets, take 3 tables once a day for 4 more days. Take the medicine Tamiflu 75mg tablets twice a day for 5 days. Use your DuoNeb nebulizer ever 4 hours as needed for shortness of breath. For cough, you can take a Tessalon Perse every 8 hours as needed . SOY MAGALLON MD Jun 18, 2018 23:29
[2018-06-18] MEDS ORDERED: ALBUTEROL/IPRATROPIUM 3 ML NEB NEB ONE (23:50)
[2018-06-18] MEDS ORDERED: methylPREDNIS SUCC 125 MG/2ML IVP ONE (23:50)
[2018-06-19 00:23] LABS: PLATELET COUNT, AUTOMATED 260 K/uL (150-450)
[2018-06-19] MEDS: ALBUTEROL 2.5 MG/3 ML NEB NEB SCH ×2 (00:23→00:45)
--- NOTE | 2018-06-19 00:59 | RADIOLOGY IMAGING REPORT ---
[place] [facility] [place] Gerry Masno : 1940 MR: [id number] V: [id number] EXAM DATE: ORDERING PHYSICIAN: SOY MAGALLON TECHNOLOGIST: Location: [facility] Patient: Gerry Mason : 1940 Visit/Account:[id number] Date of Sevice: 06/18/2018 AP CHEST 06/18/2018 11:48 PM. INDICATION: Cough, shortness of breath. RAD COMPARISON: CT 06/14/2018, chest radiographs 02/16/2018. FINDINGS: Lungs are well-expanded. No suspicious consolidation. Pleural plaques as previously seen. No pleur al effusion or pneumothorax. Heart size is normal. Remote rib fractures. Incompletely imaged cervic al hardware. Fixation screws in the left clavicle. IMPRESSION: 1. No acute abnormality. 2. 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 Report Dictated By: Remy Garrett MD at 06/19/2018 12:53 AM Report E-Signed By: Remy Garrett MD at 06/19/2018 12:55 AM WSN:[id number]
[2018-06-19 01:00] VITALS: BP 101/60
[2018-06-19] MEDS ORDERED: OSELTAMIVIR PHOS 75 MG CAP PO ONE (01:50)
[2018-06-19] MEDS ORDERED: PRED20TA6 PO (01:50)
[2018-06-19] MEDS ORDERED: OSE75 PO (01:50)
[2018-06-19] MEDS ORDERED: predniSONE 20 MG TAB PO ONE (01:50)
[2018-06-19] MEDS ORDERED: BENZ100C4 PO (01:52)
[2018-06-19] MEDS ORDERED: BENZONATATE 100 MG CAP PO ONE (01:55)
== END 2018-06-19 02:07 | disposition home or self-care (01) ==
LOC: ER 23:22
DX: J44.1 Chronic obstructive pulmonary disease with (acute) exacerbation (principal); J11.1 Influenza due to unidentified influenza virus with other respiratory manifestations; F17.210 Nicotine dependence, cigarettes, uncomplicated
CPT/HCPCS: 71045; 85025; 87502; 94640; 96374; 99284; A9270; J2930; J7512; J7613; J7620; 82040; 82247; 82310; 82374; 82435; 82565; 82947; 84075; 84132; 84155; 84295; 84450; 84460; 84520

== ENCOUNTER → 2018-11-17 | Outpatient (CLI) | payer MEDICARE, MEDICAID ==
[~2018-11-17] MED LIST changes: +BENZ100C4 PO; +BUDE0.5A IH; +OSE75 PO; +PRED-420 PO
[2018-11-17 11:45] LABS: PLATELET COUNT, AUTOMATED 289 K/uL (150-450)
--- NOTE | 2018-11-17 14:24 | EKG ---
[place] [facility] [place] NAME: JESSICA JAVIER : [id number] MR: [id number] V: [id number] EXAM DATE: ORDERING PHYSICIAN: HU HENDERSON TECHNOLOGIST: RACHEL Test Reason : SOB Blood Pressure : / mmHG Vent. Rate : 064 BPM Atrial Rate : 064 BPM P-R Int : 172 ms QRS Dur : 070 ms QT Int : 410 ms P-R-T Axes : 078 -59 065 degrees QTc Int : 422 ms Normal sinus rhythm Left axis deviation Abnormal ECG When compared with ECG of 21-APR-2018 13:37, No significant change was found Referred By: FRACISCO Confirmed By:
== END ==
LOC: RESP 10:15
PROVIDERS: ATTEND Internal Medicine
DX: J44.9 Chronic obstructive pulmonary disease, unspecified (principal); D32.9 Benign neoplasm of meninges, unspecified; R55 Syncope and collapse; R06.02 Shortness of breath; R94.31 Abnormal electrocardiogram [ECG] [EKG]
CPT/HCPCS: 36415; 81001; 82040; 82247; 82310; 82374; 82435; 82565; 82947; 83036; 84075; 84132; 84155; 84295; 84443; 84450; 84460; 84520; 85025

== ENCOUNTER → 2018-11-22 | Outpatient (CLI) | payer MEDICARE, MEDICAID ==
[~2018-11-22] MED LIST changes: +GADOBENATE 529MG/1ML 15ML VIAL IVP ONE
--- NOTE | 2018-11-22 10:02 | RADIOLOGY IMAGING REPORT ---
[place] [facility] [place] NAME: Gerry Mason : 1940 MR: [id number] V: [id number] EXAM DATE: ORDERING PHYSICIAN: HU HENDERSON TECHNOLOGIST: Location: [facility] [place] Patient: Gerry Mason : 1940 Visit/Account:[id number] Date of Sevice: 11/22/2018 Exam type: XR ORBITS History: Pre-MRI screening Comparison: July 01, 2016. Findings: No radiopaque metallic foreign bodies project over the orbits. Incidentally noted are polypoid soft tissue densities projecting over both maxillary sinuses which may represent mucous retention cysts or other polypoid lesions IMPRESSION: 1. No radiopaque metallic foreign bodies project over the orbits Report Dictated By: Rosa Maria Clemente MD at 11/22/2018 9:53 AM Report E-Signed By: Rosa Maria Clemente MD at 11/22/2018 9:54 AM WSN:[email or web address]
--- NOTE | 2018-11-22 11:25 | RADIOLOGY IMAGING REPORT ---
FACILITY: [facility] PATIENT NAME: Gerry Mason : 1940 MR: [id number] V: [id number] EXAM DATE: ORDERING PHYSICIAN: HU HENDERSON TECHNOLOGIST: [place] [facility] [place] : 1940 Visit/Account:[id number] Date of Sevice: 11/22/2018 Examination: MR brain without and with contrast History: Syncope, meningioma Comparison: Head CT 04/21/2018, brain MR July 01, 2016 Technique: Multiplane MR imaging was performed through the brain without and with contrast. 13 cc IV multihance was administered. Findings: Diffusion: None Ventricles: Normal Midline shift: None Extraxial fluid: None Midline craniocervical structures: Normal Parenchyma: A few unchanged scattered punctate white matter high signal foci. Enhancement: Unchanged in size 1.1 cm transverse by 0.9 cm craniocaudad right inferomedial occipital region meningioma. Vascular flow voids: Normal Orbits and paranasal sinuses: Cataract postsurgical change. Bilateral maxillary sinus mucous retenti on cysts. The sphenoid sinus is filled with mucosal thickening and secretions as before. Other: No significant additional finding. Impression: 1. No acute intracranial abnormality. 2. Unchanged right occipital region meningioma measures 1.1 cm maximal dimension. 3. The sphenoid sinus is chronically filled with mucosal thickening and secretions similar to prior. Report Dictated By: Dick Florence MD at 11/22/2018 11:10 AM Report E-Signed By: Dick Florence MD at 11/22/2018 11:18 AM WSN:[id number]
== END ==
LOC: MRI 02:53
PROVIDERS: ATTEND Internal Medicine
DX: Z13.89 Encounter for screening for other disorder (principal); R55 Syncope and collapse; J44.9 Chronic obstructive pulmonary disease, unspecified; D32.9 Benign neoplasm of meninges, unspecified
CPT/HCPCS: 70030; 70553; 95819; A9577